=== PATIENT | female | born 1965 | race Caucasian/White ===

== ENCOUNTER → 2016-10-15 | Outpatient (CLI) | payer BC ==
[~2016-10-15] MED LIST: COMPAZINE10 MG PO; Fioricet 325 MG1 TAB PO
== END | disposition home or self-care (01) ==
LOC: MAMMO 08:50
DX: Z12.31 Encounter for screening mammogram for malignant neoplasm of breast (principal); Z01.419 Encounter for gynecological examination (general) (routine) without abnormal findings

== ENCOUNTER → 2017-06-22 | Outpatient (CLI) | payer BC | END | disposition home or self-care (01) | LOC: US 13:30 | DX: N64.4 Mastodynia (principal) ==

== ENCOUNTER → 2019-11-13 | Outpatient (CLI) | payer BC | END | disposition home or self-care (01) | LOC: COVID19 08:16 | DX: R05 Cough (principal); R50.9 Fever, unspecified; R53.83 Other fatigue; Z20.828 Contact with and (suspected) exposure to other viral communicable diseases ==

== ENCOUNTER → 2020-10-10 | Outpatient (CLI) | payer BC | END | disposition home or self-care (01) | LOC: US 15:35 | PROVIDERS: ATTEND Family Medicine | DX: R10.819 Abdominal tenderness, unspecified site (principal) ==

== ENCOUNTER → 2021-02-16 | Outpatient (CLI) | payer BC | END | disposition home or self-care (01) | LOC: MAMMO 07:49 | PROVIDERS: ATTEND Nurse Practitioner Women's Health | DX: Z12.31 Encounter for screening mammogram for malignant neoplasm of breast (principal) ==

== ENCOUNTER → 2023-03-30 | Outpatient (CLI) | payer BC | END | disposition home or self-care (01) | LOC: MRI 01:45 | PROVIDERS: ATTEND Nurse Practitioner Family | DX: R41.3 Other amnesia (principal); G47.00 Insomnia, unspecified; E78.2 Mixed hyperlipidemia ==

== ENCOUNTER → 2024-02-06 | Outpatient (CLI) | payer BC | END | disposition home or self-care (01) | LOC: RAD 14:37 | PROVIDERS: ATTEND Nurse Practitioner Family | DX: K59.09 Other constipation (principal); K21.9 Gastro-esophageal reflux disease without esophagitis ==

== ENCOUNTER → 2024-09-07 | Outpatient (CLI) | payer BC ==
[2024-09-07 17:27] LABS: BASO % 0.5 % (0.0-1.0); EOS # 0.1 10*3/uL (0.0-0.4); EOS % 1.9 % (1.0-4.0); HEMATOCRIT 43.5 % (37.0-47.0); MEAN CELL VOLUME 96.5 fl (81.0-99.0); MEAN CORPUSCULAR HGB CONC 32.2 g/dl (33.0-37.0); MEAN PLATELET VOLUME 9.9 fl (9.6-12.3); MONO # 0.4 10*3/uL (0.1-1.0); MONO % 7.3 % (3.0-9.0); NEUT # 3.6 10*3/uL (2.3-7.9); NEUT % 60.6 % (47.0-73.0); PLATELET COUNT AUTOMATED 321 10*3/uL (130-400); RED BLOOD COUNT 4.51 10*6/uL (4.10-5.10); RED CELL DISTRI WIDTH 13.1 % (0-14.5); WHITE BLOOD COUNT 5.9 10*3/uL (4.8-10.8)
[2024-09-07 17:40] LABS: ALKALINE PHOSPHATASE 110 U/L (46-116); BUN 16 mg/dl (9-23); CHLORIDE 105 mmol/L (98-107); CHOLESTEROL 203 mg/dL (<200); GAMMA GLUTAMYL TRANSPEPTIDASE 37 U/L (0-73); LDL CHOLESTEROL 114 mg/dL (9-159); LIPASE 41 U/L (12-53); POTASSIUM 4.2 mmol/L (3.4-5.1); SGPT/ALT 14 U/L (5-49); TOTAL PROTEIN 6.8 gm/dL (6.0-8.0); TRIGLYCERIDES 52 mg/dl (<150)
== END | disposition home or self-care (01) ==
LOC: LAB 12:29
PROVIDERS: ATTEND Nurse Practitioner Family
DX: K21.9 Gastro-esophageal reflux disease without esophagitis (principal); F32.9 Major depressive disorder, single episode, unspecified; K90.0 Celiac disease; E78.2 Mixed hyperlipidemia; Z13.29 Encounter for screening for other suspected endocrine disorder; Z13.1 Encounter for screening for diabetes mellitus